=== PATIENT | female | born 1995 | race Caucasian/White ===

== ENCOUNTER → 2023-05-13 09:57 | Outpatient (CLI) | payer OTHER, MEDICAID, SELFPAY ==
--- NOTE | 2023-05-13 | DI.US.S_ITS ---
PROCEDURE: US OB FOLLOW UP INDICATIONS: GROWTH IN HIGH RISK OUTSIDE/PRIOR DATING DATA: Last menstrual period (LMP): 08/24/2022. LMP-based estimated date of delivery (DAR): 05/31/2023. First dating scan (date and location): N/a. Estimated date of delivery (DAR) from first dating scan: N/a. The calculations are made using the clinical DAR of 05/31/2023. TECHNIQUE: Real-time scanning was performed of the fetus, with image documentation and biometric measurements. Endovaginal scanning: Not performed COMPARISON: None. FINDINGS: General: A single living intrauterine gestation is present. Presentation: Vertex. Placenta: Placental position is posterior, without previa. Amniotic fluid index: 17.7 cm, normal range is 5-24 cm. Single deepest vertical pocket is 5.4 cm. heart rate: 155 beats per minute. Maternal cervical canal: Not measured biometrics: Biparietal diameter: 8.5 cm Head circumference: 31.7 cm Abdominal circumference: 30.0 cm Femur length: 6.8 cm Clinically estimated gestational age: 35 weeks 3 days Composite gestational age from present scan: 34 weeks 5 days Estimated weight and percentile: 2412 g, 21st percentile Other: Not applicable. IMPRESSION: Single live intrauterine with composite gestational age of 34 weeks and 5 days from present scan. We strive to produce accurate, complete, and clear reports of imaging services. To assist us in improving patient care, this report was composed using standard report templates and voice recognition software. Therefore, it may contain abnormal punctuation, insertions and/or omissions. Occasional wrong-word or sound-alike substitutions may occur. Though we review the report and make efforts to correct it, we do recommend that the report be read carefully in proper context to recognize any text inaccuracies. Dictated by: Blaine Mallory M.D. on 05/13/2023 at 12:58 Approved by: Wendy OSBORNE on 05/13/2023 at 13:09 Blaine Mallory M.D.
[2023-05-13 10:52] LABS: Hematocrit 35.9 % (36-46); Mean Corpuscular HGB Conc 33.5 % (30-36); Mean Corpuscular Hemoglobin 27.5 PG (26-34); Mean Corpuscular Volume 82.1 fL (80-100); Platelet Count 269 X10^3/uL (150-400); Red Blood Cell Count 4.37 X10^6/uL (4.0-5.2); Red Cell Distribution Width 13.1 % (11.6-14.8); White Blood Cell Count 7.2 X10^3/uL (4.5-11.0)
[2023-05-14 10:24] LABS: Glucose 85 mg/dL (70-100)
[2023-05-15 06:05] LABS: Labcorp Hemoglobin (Hb) A1c 5.3 % (4.8-5.6)
== END ==
PROVIDERS: PCP Advanced Practice Midwife; Referring Provider Advanced Practice Midwife; Visit Provider Advanced Practice Midwife
DX: O09.93 Supervision of high risk pregnancy, unspecified, third trimester; O99.013 Anemia complicating pregnancy, third trimester; R76.0 Raised antibody titer; O99.891 Other specified diseases and conditions complicating pregnancy; O26.843 Uterine size-date discrepancy, third trimester; Z3A.34 34 weeks gestation of pregnancy
CPT/HCPCS: 36415; 76816; 76820; 82248; 82947; 83036; 85027; 86140; 86850; 86870; 86880; 86886; 86900; 86901

== ENCOUNTER → 2023-06-06 14:08 | Outpatient (CLI) | payer OTHER, MEDICAID, SELFPAY ==
[2023-06-06 14:28] LABS: Hematocrit 36.2 % (36-46); Hemoglobin 12.1 g/dL (12.0-16.0); Mean Corpuscular HGB Conc 33.3 % (30-36); Mean Corpuscular Hemoglobin 27.5 PG (26-34); Mean Corpuscular Volume 82.3 fL (80-100); Platelet Count 262 X10^3/uL (150-400); Red Blood Cell Count 4.39 X10^6/uL (4.0-5.2); Red Cell Distribution Width 13.6 % (11.6-14.8); White Blood Cell Count 9.7 X10^3/uL (4.5-11.0)
[2023-06-06 14:44] LABS: Glucose 75 mg/dL (70-100)
[2023-06-07 06:07] LABS: Labcorp Hemoglobin (Hb) A1c 5.7 % (4.8-5.6)
== END ==
PROVIDERS: PCP Advanced Practice Midwife; Referring Provider Advanced Practice Midwife; Visit Provider Advanced Practice Midwife
DX: O09.93 Supervision of high risk pregnancy, unspecified, third trimester (principal); Z3A.34 34 weeks gestation of pregnancy; R76.0 Raised antibody titer; O99.019 Anemia complicating pregnancy, unspecified trimester
CPT/HCPCS: 36415; 82947; 83036; 85027; 86850; 86870; 86900; 86901

== ENCOUNTER 2023-06-07 07:09 | Inpatient (IN) | payer OTHER, MEDICAID, SELFPAY ==
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
[2023-06-07] MEDS: OXYTOCIN PREMIX 30 UNIT/500 ML PLAST..BAG IV (08:35)
[2023-06-07] MEDS: LACTATED RINGERS 1,000 ML 100 ML IV ×3 (08:36→16:34)
[2023-06-07 08:52] VITALS: BP 109/61
[2023-06-07 09:07] VITALS: BP 109/61; PULSE 77; RESP 16; TEMP 36.3
--- NOTE | 2023-06-07 12:27 | PM.OBPNLAB ---
Date/Time Date Patient Seen: 06/07/23 Time Patient Seen: 12:27 Pain Control Pain control: tolerating well Comments: Resting in bed comfortably, starting to breathe through contractions, dose not desire pain medication at this time BP: 108/66 P: 71 T: 36.3 C RR: 16 Sp02: 97 Pelvic Exam Dilation (cm): 2 Effacement (%): 60 station: -2 Amniotic membrane status: Intact Contractions Monitor mode: External Pitocin rate (mU/min): 16 Contraction frequency (min): 5 (2-7) Contraction duration (min): 1 Contraction pattern: Irregular Contraction intensity: Moderate Status status: Category l Heart Rate Baseline: 140 Monitor Accelerations: Present Monitor Decelerations: Absent Monitor Variability: Moderate Assessment and Plan Assessment: induction ongoing Plan: continuous present management Comments: A: Term multipara Early labor GBS positive Antibody positive Rh positive P: Continue to titrate pitocin per protocol Keflex for GBS prophylaxis when water breaks or when working through contractions Epidural PRN Recheck in 4 hours or sooner PRN Promote rest and frequent position changes when awake
[2023-06-07] MEDS: CEFAZOLIN 2 GM/100 ML PREMIX 100 ML IV (14:16)
[2023-06-07] MEDS: FENT 2MCG/ML BUPIV 0.1% EPI 200 MCG/100 ML PLAST..BAG 12 MCG EPIDURAL (15:00)
--- NOTE | 2023-06-07 15:58 | PM.OBPNLAB ---
Date/Time Date Patient Seen: 06/07/23 Time Patient Seen: 15:58 Pain Control Comments: Resting comfortably in bed on L side, epidural in place and working well. VS: BP - 108/58 P - 75bpm Sp02 - 97% T - 36.4C Pelvic Exam Dilation (cm): 6 Effacement (%): 80 station: -1 Amniotic membrane status: Ruptured (with light meconium) Contractions Date/Time contractions began: Monitor mode: External Pitocin rate (mU/min): 13 Contraction frequency (min): 4 (2-5) Contraction duration (min): 1 (50-90 sec) Contraction pattern: Regular Contraction intensity: Moderate Status status: Category ll Heart Rate Baseline: 135 Monitor Accelerations: Present Monitor Decelerations: Variable (recurrent and vary between shallow and deep) Monitor Variability: Moderate Assessment and Plan Comments: A: Term multipara Active labor GBS positive Antibody positive Epidural effective Cat 2 FHR P: Continue to titrate pitocin per protocol Initial dose of ancef administered Promote frequent position changes Cross matched for 2 units in blood bank Recheck in 4 hours or sooner PRN
[2023-06-07] MEDS: ONDANSETRON 4 MG/2 ML INJ 8 MG IV (16:35)
--- NOTE | 2023-06-07 18:40 | P.PCNOB_ITS ---
Events: Labor Induction and Meconium Stained Fluid Labor & Delivery Delivery date: 06/07/23 Intrapartal Events: Abnormal Labs (positive antibody), Acceleration and Deceleration (variables) Cervical ripening method: none Induction method: per pitocin protocol Delivery monitor: external FHT Route of delivery: Episiotomy description: None L&D Laceration Description: Perineal - 2nd Degree (hemostatic and well approximated, not repaired) Estimated blood loss (mL): 100 Anesthesia Type: Epidural Narrative: Yanni was comfortable through contractions with epidural, feeling intermittent rectal pressure with contractions. FHR Cat 2 with variable decels, moderate variability. Consented to amnioinfusion, but was found to be complete at 1738. Pushing initiated in lithotomy, changed to R side lying, FHR Cat 2 throughout second stage. Well supported CNM, SNMs, RNs and . RT in room for meconium stained fluid. Vigorous baby girl delivered in OA with compound hand and cord wrapped around hand, somersaulted and cord unwrapped from hand and then placed onto maternal abdomen. Cord double clamped by SNM and cut by FOB after 60 seconds, placed skin to skin with dad per maternal preference. APGARs 8/9. Second degree perineal laceration midline, hemostatic and well approximated, repair not indicated and Yanni agrees with plan. Placenta delivered after 8 minutes, Cristal. Upon inspection appears to be intact. Three vessel cord. Fundus firm, U-3, scant bleeding, EBL 100ml. Baby skin to skin with dad as we left the room. Parents are delighted with their third daughter, Bee. [place] Baby 1: Infant gender: Female Presentation: vertex Position: Left Occiput Anterior (OA ) Placenta delivery description: Spontaneous Cord Vessel Description: 3 Vessels score (1 min): 8 score (5 min): 9 weight: 2.898 kg Plan for aftercare: Routine care
[2023-06-07] MEDS: ACETAMINOPHEN 325 MG TABLET 650 MG PO (19:56)
[2023-06-07] MEDS: LANOLIN OINT 7 GM 1 APPLIC TOP (19:57)
[2023-06-07] MEDS: KETOROLAC 30 MG/ML VIAL IV (19:57)
[2023-06-08] MEDS: IBUPROFEN 600 MG TABLET PO ×2 (02:07→08:37)
[2023-06-08] MEDS: ACETAMINOPHEN 325 MG TABLET 650 MG PO ×2 (02:08→08:37)
[2023-06-08] MEDS: SERTRALINE 50 MG TABLET 100 MG PO (08:37)
[2023-06-08] MEDS: MEASLES,MUMPS,RUBELLA VACC/PF 0.5 ML VIAL SUBCUT (12:40)
[2023-06-08] MEDS: TET,DIPH,PERTUSS(ACELL),VAC/PF 0.5 ML SYRINGE IM (12:41)
--- NOTE | 2023-06-08 12:45 | PM.OBDS.1 ---
Discharge Providers Provider Date of admission: 06/07/23 07:09 Discharge Date: 06/08/23 Primary care physician: Marisela Chowdhury CNM, ARNP Consults: 06/08/23 18:32 Consult to Marketing Production Coordinator Routine Comment: Discharge provider: Marisela Chowdhury CNM, ARNP Summary Hospital Course Date Patient Seen: 06/08/23 Time Patient Seen: 12:48 Diagnoses: O80 Hospital Course: Yanni was admitted for induction of labor Peripartum Data Delivery Method: Natural Vaginal Laceration Description: Perineal - 2nd Degree (hemostatic and well approximated, repair not indicated) 1: Gender: Female Disposition of : home Discharge Diagnosis (1) (normal spontaneous vaginal delivery): Status: Acute (2) Breast feeding status of mother: Status: Acute (3) Second degree perineal laceration: Status: Acute Status at Discharge Cognitive/behavioral status at discharge: oriented and calm Functional status at discharge: independent ambulation Overall status at discharge: patient is progressing back to baseline Time Spent with Patient Time attestation: Total time spent providing and/or coordinating discharge services: Time spent: Less than 30 minutes Specific discharge activities: discharge teaching Exam Vital Signs (past 8 hours): BP: 110/68 HR: 58 Temp: 97.9 F temporal RR: 20 Other: Fundus firm at U-2, midline. Lochia scant Perineum 2nd degree not repaired; healing well with minimal edema Discharge Plan Discharge Plan Patient Disposition: Home Discharge orders & Medications Prescriptions: Continued sertraline 100 mg tablet 100 mg PO DAILY prenat.vits,matias,[id number]-msqps Tablet DAILY Follow up/Referrals: Marisela Chowdhury CNM, ARNP [Primary Care Provider] - 1 Week (Please check your email for your follow up appointments ) Diet/Activity/Treatments Diet: Diet as Tolerated and Regular Diet comment: Ensure good hydration and fiber while healing Activity: Low-ramirez for 2 weeks (no vacuuming, shopping in stores, long walks, heavy lifting). Cold/Heat Therapy: As needed for pain/discomfort. Baths to soak perineum 3-5 times per day. Skin/Wound/Dressing Care Skin care: usual care Report to your healthcare provider any signs of infection, such as:: chills, fever, unusual drainage and unusual redness Visit Report/Discharge Packet Instructions: DI for Labor and Delivery, Vaginal Stand Alone Forms: Discharge: Care, Patient Portal/API Discharge Data Primary Care Provider: Marisela Chowdhury Attending Provider: Marisela Chowdhury Admit Date/Time: 06/07/23 07:09
[2023-06-08 12:48] VITALS: BP 110/68; PULSE 58; RESP 18; TEMP 36.6
== END 2023-06-08 14:20 | disposition home or self-care (01) | DRG 560 ==
PROVIDERS: Admitting Provider Advanced Practice Midwife; PCP Advanced Practice Midwife; Referring Provider Advanced Practice Midwife; Visit Provider Advanced Practice Midwife
DX: O99.824 Streptococcus B carrier state complicating childbirth (principal); Z3A.39 39 weeks gestation of pregnancy; Z37.0 Single live birth; O76 Abnormality in fetal heart rate and rhythm complicating labor and delivery; O36.1930 Maternal care for other isoimmunization, third trimester, not applicable or unspecified; O09.93 Supervision of high risk pregnancy, unspecified, third trimester; Z3A.34 34 weeks gestation of pregnancy; R76.0 Raised antibody titer; O99.019 Anemia complicating pregnancy, unspecified trimester
CPT/HCPCS: 36415; 59050; 82947; 83036; 85027; 86850; 86870; 86900; 86901; G0378; 90715; G0379; J0690; J1885; J2405; J2590